=== PATIENT | male | born 1965 | race Caucasian/White ===

== ENCOUNTER 2020-11-04 06:33 | Inpatient (IN) | payer MEDICARE, MEDICAID ==
[~2020-11-04] VITALS: Ht 185.4 cm; Wt 84.4 kg
--- NOTE | ~2020-11-04 | EMS ---
[place] [address] EMS Patient Care Report Name: TIFFANY BARNEY Room: [address] IN M..#: [id number] Admission: 11/04/20 Attend Phys: Marie Lopez MD Discharge: 11/07/20 Date of : 61 Report #: [id number] THIS REPORT FOR: //name// Report Transmitted: 11/12/2020 11:27 EMS Care Summary [facility] [id number] @ 11/04/2020 05:08 Incident [address] [place] [address] Patient TIFFANY BARNEY Male, 55 Years 1965 Patient Address [address] [place] [address] Patient History Bipolar II Disorder,Anxiety,Schizoaffective Disorder, Patient Allergies No known allergies, Patient Medications Ibuprofen, Benztropine, Buspirone, Hydrocodone, Invega, Tizanidine, Chief Complaint left leg pain Disposition Transported No Lights/[place] Dispatch Reason Falls Transported To [facility] Narrative Dispatched to the [facility] for a fall. Upon arrival found 55 year old male lying on the floor. Patient is alert and oriented x 4. Patient relates that he [facility] [address] [place] [address] EMS Patient Care Report Name: TIFFANY BARNEY Room: 314-P [facility] IN [facility]#: [id number] Admission: 11/04/20 Attend Phys: Marie Lopez MD Discharge: 11/07/20 Date of : 61 Report #: [id number] was doing his morning stretches when he had a muscle spasms in his lower back causing him to fall. Patient relates that he is not sure how he landed. Patient relates that when he fell it happened so fast he didn't have time to react. Patient relates that he did hit his head on the wall when he fell. Patient denies any LOC neck pain or new back pain. Patient relates that he does have history of chronic back pain. Patient denies any blood thinners. Patient relates that he fell in the living room and had to drag himself back into the bedroom to pull the help cord. Patient requested to be transported to [facility] for further evaluation. 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 Patient loaded in ambulance and secured. Splinted leg using BRETT splint and gauze. After splinting patient relates that his leg does feel better. Patient placed on bus monitor showing sinus rhythm. Started iv to left antecubital using 18 gauge and saline lock, good flash flushes easy with 10 cc of normal saline. Patient transported to [facility]. Patient relates that he does have history of mental health issues as well. Patient rested comfortably during transport with no changes. Contacted [facility] via radio no orders were requested or received. Arrived [facility] patient to room 9 care and report to staff. Initial Vitals @05:45P: 93,SpO2: 97, @05:45P: 81,SpO2: 97, @05:55P: 78,R: 20,BP: 133/85,GCS: 15,SpO2: 98,Revised Trauma: 12, @05:45P: 78,R: 20,BP: 121/82,GCS: 15,Glucose: 188,SpO2: 98,Revised Trauma: 12, @06:24P: 81,R: 20,BP: 130/78,GCS: 15,SpO2: 97,Revised Trauma: 12, @06:05P: 78,R: 20,BP: 131/87,GCS: 15,Revised Trauma: 12, Assessments @05:35MENTAL:Person Oriented,Time Oriented,Place Oriented,Event Oriented,SKIN:HEENT:Head/Face: No Abnormalities,Neck/Airway: No Abnormalities,LUNG SOUNDS:General: No Abnormalities,ABDOMEN:General: No Abnormalities,PELVIS//GI:No Abnormalities,EXTREMITIES:Left Leg: Other,Left Leg: Edema,Left Arm: No Abnormalities,Right Arm: No Abnormalities,Right Leg: No Abnormalities,PULSE:NEURO:No Abnormalities, Impression Injury of Lower Leg Procedures @05:45Splint Fx/Disloc.Response: ImprovedSucceeded@05:45Saline Lock 10cc (18 ga) Site: Antecubital-LeftResponse: UnchangedSucceeded@05:453-Lead ECGResponse: UnchangedSucceeded@05:30StretcherResponse: Unchanged@05:21BLS AssessmentResponse: [place] [address] EMS Patient Care Report Name: TIFFANY BARNEY Room: [address] IN M.R.#: [id number] Admission: 11/04/20 Attend Phys: Marie Lopez MD Discharge: 11/07/20 Date of : 61 Report #: [id number] Timeline 05:08,Call Received 05:08,Dispatched 05:08,Psap Call 05:14,En Route 05:17,On Scene 05:20,At Patient 05:21,BLS Assessment,Response: Unchanged 05:30,Stretcher,Response: Unchanged 05:45,3-Lead ECG,Response: UnchangedSucceeded, 05:45,Splint Fx/Disloc.,Response: ImprovedSucceeded, 05:45,BP: 121/82 M,PULSE: 78,RR: 20 R,SPO2: 98 Ox,ETCO2: ,B,PAIN: ,GCS: 15, 05:45,Saline Lock 10cc 18 ga Site: Antecubital-Left,Response: UnchangedSucceeded, 05:45,BP: / M,PULSE: 81,RR: R,SPO2: 97 Ox,ETCO2: ,BG: ,PAIN: ,GCS: , 05:45,BP: / M,PULSE: 93,RR: R,SPO2: 97 Ox,ETCO2: ,BG: ,PAIN: ,GCS: , 05:47,Depart Scene 05:55,BP: 133/85 M,PULSE: 78,RR: 20 R,SPO2: 98 Ox,ETCO2: ,BG: ,PAIN: ,GCS: 15, 06:05,BP: 131/87 M,PULSE: 78,RR: 20 R,SPO2: Ox,ETCO2: ,BG: ,PAIN: ,GCS: 15, 06:24,BP: 130/78 M,PULSE: 81,RR: 20 R,SPO2: 97 Ox,ETCO2: ,BG: ,PAIN: ,GCS: 15, 06:30,At Destination 06:35,Transfer Patient 07:20,Call Closed 07:20,In District Disclaimer v1.1 Copyright 2021 [employer] This EMS Care Summary contains data elements from the applicable legal record (which may be displayed differently). It is designed to provide pertinent information for the following purposes: continuity of care, clinical quality, and state data reporting. The complete legal record is available to ED staff and administrators of the receiving hospital in [employer]'s Patient Tracker. All data is provided "as is."
[2020-11-04 06:36] VITALS: BP 131/83
[2020-11-04 06:52] LABS: HEMATOCRIT 40.4 % (42.0-52.0); HEMOGLOBIN 13.6 gm/dL (14.0-18.0); MCH 29.9 pg (26.0-34.0); MCHC 33.6 g/dL (28.0-37.0); MCV 88.8 fL (80.0-100.0); MPV 7.1 fl. (7.2-11.1); RBC 4.54 mil/uL (4.50-6.00); RDW-CV 13.5 % (10.5-14.5); WBC 9.1 thou/uL (4.0-11.0)
[2020-11-04] MEDS ORDERED: INVEGA SUS234 MG/1.5 IM (06:57)
[2020-11-04] MEDS ORDERED: TIZANIDINE HCL4 M1 PO (06:57)
[2020-11-04] MEDS ORDERED: MULTIPLE VITAM1 EAC4 PO (06:58)
[2020-11-04] MEDS ORDERED: IBU800 MG PO (06:58)
[2020-11-04] MEDS ORDERED: BENZTROPINE ME0.5 MG PO (06:58)
[2020-11-04] MEDS ORDERED: BUSPIRONE HCL10 MG PO (06:59)
[2020-11-04 07:02] LABS: CALCIUM 9.2 mg/dL (8.5-10.1); CREATININE 1.3 mg/dL (0.6-1.3); POTASSIUM 4.6 mmol/L (3.5-5.1)
[2020-11-04 07:07] LABS: ALBUMIN 3.2 g/dL (3.4-5.0); TOTAL BILIRUBIN 0.4 mg/dL (<0.1-1.0); TOTAL PROTEIN 6.4 g/dL (6.4-8.2)
[2020-11-04 11:27] VITALS: BP 118/77
[2020-11-04 11:30] VITALS: BP 112/75
[2020-11-04 16:13] VITALS: BP 102/64
[2020-11-04 19:30] VITALS: BP 153/87
[2020-11-05 04:56] LABS: HEMATOCRIT 36.2 % (42.0-52.0); HEMOGLOBIN 12.2 gm/dL (14.0-18.0); MCH 29.9 pg (26.0-34.0); MCHC 33.8 g/dL (28.0-37.0); MCV 88.6 fL (80.0-100.0); MPV 7.2 fl. (7.2-11.1); RBC 4.09 mil/uL (4.50-6.00); RDW-CV 13.7 % (10.5-14.5); WBC 7.2 thou/uL (4.0-11.0)
[2020-11-05 05:05] LABS: CALCIUM 8.6 mg/dL (8.5-10.1); CREATININE 1.2 mg/dL (0.6-1.3); POTASSIUM 4.3 mmol/L (3.5-5.1)
[2020-11-05 05:38] VITALS: BP 153/87
[2020-11-05 10:30] VITALS: BP 126/75
--- NOTE | 2020-11-05 13:47 | EKG ---
[place] [address] ELECTROCARDIOGRAM REPORT Name: TIFFANY BARNEY Room: [address] ADM IN M.R.#: [id number] Admission: 11/04/20 Attend Phys: Marie Lopez MD Discharge: Date of : 61 Date of Service: 11/04/2043 Report #: [id number] THIS REPORT FOR: //name// [facility] ED Test Date: 2020-11-04 Test Time: 06:43:08 Pat Name: TIFFANY BARNEY Department: Room: [facility] Gender: M [place]: : 1965 Requested By: Oanh Cotto Order Number: [id number] MD: Chino Irizarry Measurements Intervals [place] Rate: 72 P: [place]: QRS: 45 QRSD: 109 T: 57 QT: 400 QTc: 438 Interpretive Statements Sinus rhythm No previous ECG available for comparison Electronically Signed On 11-05-2020 13:47:40 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
[2020-11-05 16:24] VITALS: BP 99/72
[2020-11-05 21:08] VITALS: BP 118/70
[2020-11-06 00:23] VITALS: BP 113/74
[2020-11-06 04:58] LABS: HEMATOCRIT 32.6 % (42.0-52.0); HEMOGLOBIN 11.1 gm/dL (14.0-18.0); MCH 29.8 pg (26.0-34.0); MCHC 34.1 g/dL (28.0-37.0); MCV 87.3 fL (80.0-100.0); MPV 6.9 fl. (7.2-11.1); RBC 3.73 mil/uL (4.50-6.00); RDW-CV 13.4 % (10.5-14.5); WBC 8.6 thou/uL (4.0-11.0)
[2020-11-06 05:18] LABS: CALCIUM 8.8 mg/dL (8.5-10.1); CREATININE 1.2 mg/dL (0.6-1.3); POTASSIUM 3.7 mmol/L (3.5-5.1)
[2020-11-06 07:30] VITALS: BP 123/78
[2020-11-06] MEDS ORDERED: ASPIRIN325 PO (10:44)
[2020-11-06 12:53] VITALS: BP 123/78
[2020-11-06 13:27] VITALS: BP 123/78
[2020-11-06 16:14] VITALS: BP 121/76
[2020-11-06 20:51] VITALS: BP 116/77
[2020-11-07 05:50] LABS: HEMOGLOBIN 11.2 gm/dL (14.0-18.0); MCH 30.1 pg (26.0-34.0); MCV 88.4 fL (80.0-100.0); MPV 6.9 fl. (7.2-11.1); RBC 3.73 mil/uL (4.50-6.00); RDW-CV 13.3 % (10.5-14.5); WBC 8.5 thou/uL (4.0-11.0)
[2020-11-07 06:01] LABS: CALCIUM 8.9 mg/dL (8.5-10.1); CREATININE 1.1 mg/dL (0.6-1.3); POTASSIUM 4.3 mmol/L (3.5-5.1)
[2020-11-07] MEDS ORDERED: VITAMIN D325 MC5 PO (06:16)
--- NOTE | 2020-11-07 07:55 | OP ---
[address] [address] OPERATIVE REPORT Name: TIFFANY BARNEY Room: [address] IN M.R.#: [id number] Admission: 11/04/20 Attend Phys: Marie Lopez MD Discharge: Date of : 61 Report #: [id number] THIS REPORT FOR: cc: CHARIS - No family physician/PCP FAM - No family physician/PCP ~ Naveed Elder DO DATE OF SERVICE: 11/05/2020 PREOPERATIVE DIAGNOSES: Comminuted intra-articular left distal tibia fracture and comminuted distal one-third fibular shaft fracture. POSTOPERATIVE DIAGNOSES: Comminuted intra-articular left distal tibia fracture and comminuted distal one-third fibular shaft fracture. OPERATION PERFORMED: Closed reduction and intramedullary nailing of comminuted intraarticular left distal tibia fracture and closed reduction of left distal one-third fibular fracture. SURGEON: Naveed Elder DO NEUROLOGY NURSE: Foster Vega DO ANESTHESIA: General. ANTIBIOTICS: Ancef. INTRAVENOUS FLUIDS: 1100 mL lactated Ringer's. ESTIMATED BLOOD LOSS: 300 mL. COMPLICATIONS: None. SPECIMENS: None. DRAINS: None. CONDITION OF PATIENT: Stable to PACU. IMPLANTS: Synthes tibial nail with 3 distal interlocking screws, 2 proximal interlocking screws, 10 mm end cap, nail 10 x 360 mm. INDICATIONS FOR PROCEDURE: Comminuted intra-articular distal tibia fracture. CT scan measurements did confirm that there will be room enough for interlocking screws for nail placement due to the patient's comorbidities and the fact that the skin had excoriations and multiple different stages of healing and it felt [address] [place] [address] OPERATIVE REPORT Name: TIFFANY BARNEY Room: [address] ADM IN M.R.#: [id number] Admission: 11/04/20 Attend Phys: Marie Lopez MD Discharge: Date of : 61 Report #: [id number] that large open procedure would be very unideal and be significant risk for infection and wound problems; therefore, IM nailing was the game plan going in the surgery with the option of external fixation, but we were able to proceed forthwith the IM nailing. Risks and complications had been discussed, acknowledged and accepted. We would like to note that I did discuss with the patient and mother preoperatively that there are different techniques for intramedullary nail placement, few of the main techniques would be infrapatellar and another option being suprapatellar. I explained that I felt suprapatellar would be beneficial with this being a comminuted distal one-third fracture. There is data to support that reduction is more reliably reproducible and improved even with suprapatellar nailing. There is the risk of intra-articular injury due to going to the knee. They were understanding and okay with this gave consent. DESCRIPTION OF PROCEDURE: I marked the left lower extremity in the presence of operative team members. Everyone agreed this was correct. He was taken back to the operative suite, placed on the table supine, well-padded and secured. General anesthetic administered. A well-padded tourniquet was placed proximally on the left lower extremity at no point in time was inflated. The left lower extremity was sterilely prepped and draped in standard fashion. Timeout was performed indicating correct patient, procedure, site, antibiotics and that implants were present and sterile. Again, multiple aspects of healing type wounds that appear to picking the skin were present. Skin was wrinkling in areas of potential incisions for percutaneous screw placement. We confirmed that we could get an adequate closed reduction on C-arm. We then went proximally in line with the patella just superior. Scalpel was taken through skin, full thickness flaps. Secondary scalpel was used to make an incision in the quad tendon in appropriate position. I felt within the joint significant arthritic change with cartilage loss and osteophytic lipping. We placed the protective sleeve and made sure that this was well seated and protected throughout the entirety of the case. Working through that sleeve, we placed a guidepin and on appropriate AP and lateral images we advanced that guide in an appropriate position and then reamed over. A ball-tipped guidewire was placed down the tibia, and in appropriate position distally, confirmed on multiplanar imaging, measured to be between 360 and 375, 375 would be too long and knowing that we were measuring this fully distally. Plan would be for an end cap placed if needed. We then began reaming sequentially to 11.5 for a 10 nail, we did have appropriate chatter through the isthmus going larger would not give us any more benefit. We therefore threw the final Synthes 10 x 360 mm nail on the back table. This was inserted over the ball-tipped guidewire uneventfully into the protective sleeve. It should be noted that while we were reaming we confirmed on multiplanar imaging that our reduction was appropriate and the nail followed that reaming as expected and our reduction was excellent. We paid attention on AP and lateral images quite closely as the nail was being finally seated, but there was no intra-articular displacement. Using [address] [address] OPERATIVE REPORT Name: TIFFANY BARNEY Room: [address] IN [facility].#: [id number] Admission: 11/04/20 Attend Phys: Marie Lopez MD Discharge: Date of : 61 Report #: [id number] percutaneous incision method, we carefully spread that bone directly visualized that bony aspects to ensure that we were not entrapping any neurovascular muscle or tendon structures. We drilled, measured and placed 3 distal interlocking screws with appropriate purchase. It should be noted that his bone quality was quite poor, but overall those screws did have some purchase. Proximally, we used the guide for screw placement, removed that guide and placed a 10 mm end cap. Final C-arm images showed excellent placement of our hardware, fracture reduction. Distal fibular fracture was again comminuted, but overall acceptable alignment and the ankle mortise was in good position with appropriate joint lines as being the most important protector. His compartments were soft and compressible. We saved those images, dismissed C-arm, irrigated all aspects of the incisions with normal saline. I felt within the joint, confirmed that there was no damage and his previous arthritic changes were no different, no loose bodies, reirrigated with normal saline throughout the joint and then closed with a #1 Vicryl for the tendon, subcutaneous 2-0 Monocryl, skin for all incisions with 3-0 nylon, came together under no undue tension. Again, compartments soft and compressible. Sterile soft dressings applied and a well-molded splint. He was extubated and taken to PACU in stable. POSTOPERATIVE COURSE AND EVALUATION: I did speak with his mother again on the phone, addressed questions she had to satisfaction. She was thankful for my time and efforts. He was resting in PACU with stable vital signs, pain controlled, neurovascularly intact. Compartments soft and compressible. No signs of DVT. No signs of compartment syndrome. Nonweightbearing. Splint clean, dry and intact. DVT prophylaxis will be pharmacological and mechanical until instructed otherwise. PT, OT, case management to help with discharge planning. COVID protocol followed all times. <ELECTRONICALLY SIGNED> By: Naveed Elder DO 11/07/20 0755 [id number] Naveed Elder DO /nt
[2020-11-07 08:00] VITALS: BP 117/76
[2020-11-07] MEDS ORDERED: HYDROCODON-ACE1 EAC7 PO (10:53)
[2020-11-07 14:06] VITALS: BP 123/78
[2020-11-07 15:06] VITALS: BP 123/78
== END 2020-11-07 15:06 | disposition home health service (06) | DRG 493 ==
LOC: M.ERS 06:33 → M.3W 09:41 → M.TBA-ER 09:41 → M.3W 11:32
PROVIDERS: Personal Emergency Response Attendant; ADMIT Family Medicine; ATTEND Family Medicine
PROC: 0QSHXZZ Reposition Left Tibia, External Approach (ICD-10-PCS; principal; 2020-11-04)
PROC: 0QSKXZZ Reposition Left Fibula, External Approach (ICD-10-PCS; principal; 2020-11-04)
PROC: 0QSH36Z Reposition Left Tibia with Intramedullary Internal Fixation Device, Percutaneous Approach (ICD-10-PCS; 2020-11-05)
PROC: 0QSK34Z Reposition Left Fibula with Internal Fixation Device, Percutaneous Approach (ICD-10-PCS; 2020-11-05)
DX: S82.452A Displaced comminuted fracture of shaft of left fibula, initial encounter for closed fracture (principal); E44.1 Mild protein-calorie malnutrition; R71.0 Precipitous drop in hematocrit; S82.392A Other fracture of lower end of left tibia, initial encounter for closed fracture; W18.39XA Other fall on same level, initial encounter; F25.9 Schizoaffective disorder, unspecified; Z20.822 Contact with and (suspected) exposure to COVID-19; Z79.899 Other long term (current) drug therapy; Z68.24 Body mass index [BMI] 24.0-24.9, adult; Y93.89 Activity, other specified; Y92.89 Other specified places as the place of occurrence of the external cause; Y99.8 Other external cause status